=== PATIENT | male | born 1955 | race Caucasian/White ===

== ENCOUNTER 2023-04-05 10:05 | Emergency (ER) | payer OTHER, MEDICARE, BC, SELFPAY ==
[2023-04-05 10:32] VITALS: BP 136/81; PULSE 70; RESP 18; TEMP 36.8; O2SAT 99; BMI 39.1
--- NOTE | 2023-04-05 11:11 | CRLHL7_ITS ---
For Patients: As a result of the Cures Act, medical imaging exams and procedure reports are released immediately into your electronic medical record. You may view this report before your referring provider. If you have questions, please contact your health care provider. INDICATION: Worsening wound COMPARISON: None. TECHNIQUE: Two views right tibia and fibula. FINDINGS: BONES: No fracture. Normal mineralization. No focal bone lesion. JOINT: Grossly normal knee and ankle joint alignment. No knee joint effusion. Joint spaces: Knee osteoarthritis. Soft Tissues: Diffuse subcutaneous soft tissue edema. Irregular soft tissue calcification behind the right distal femur could be atherosclerotic in nature. No foreign body. IMPRESSION: Diffuse soft tissue edema in the right lower leg. No focal osseous lesion or bony destruction seen. Dictated by Lissette Israel MD @ 04/05/2023 12:40:08 PM (Electronically Signed)
[2023-04-05 11:46] LABS: Basophils Absolute Auto 0.02 K/uL (0.00-0.30); Basophils Percent Auto 0.3 % (0.0-3.0); Eosinophils Absolute Auto 0.25 K/uL (0.00-0.50); Eosinophils Percent Auto 4.1 % (0.0-7.0); Hemoglobin* 15.1 gm/dL (13.5-17.5); Lactate Sepsis w/Reflex* 1.7 mmol/L (0.5-1.9); Lymphocytes Percent Auto 18.6 % (20-44); Mean Corpuscular HGB Conc 33 gm/dL (32-36); Mean Corpuscular Hemoglobin 29 pg (26-34); Mean Corpuscular Volume 88 fL (80-100); Monocytes Percent Auto 7.1 % (0.0-11.0); Neutrophils Absolute Auto 4.25 K/uL (1.7-7.0); Neutrophils Percent Auto 69.9 % (42.0-72.0); Platelet Count* 218 K/uL (140-440); RDW Coefficient of Variation % 12.7 % (11.5-15.5); Red Blood Count 5.26 m/uL (4.30-5.90); White Blood Count* 6.08 K/uL (4.50-11.00)
[2023-04-05 11:48] LABS: Slide Review Reflex No
--- NOTE | 2023-04-05 11:55 | ED_ITS ---
HPI - General Adult General Date Seen: 04/05/23 Chief complaint: Skin/Abscess/Foreign Body Stated complaint: R valladares injury Time Seen by Provider: 04/05/23 11:02 Source: patient Mode of arrival: ambulatory Limitations: no limitations History of Present Illness HPI narrative: Patient is a 67-year-old male sent here by [facility] for further evaluation of a wound with possible cellulitis on his right lower leg. The regional injury to this area was on March 18 when he fell off of his truck and hit the leg he thinks on the trailer hitch. He says there was an abrasion and then an adjacent blood blister. He developed some redness surrounding this area over the next several days and on March 22 was seen and was started on Bactrim. He took that until the . He says the redness was better and the leg seem less swollen while he was on the Bactrim but once he stopped he feels like the leg is more swollen and maybe a little bit more red. Has some pain lateral to the area of the wound, he has not had any fevers or systemic complaints. He does not have a primary doctor and does not remember the last time he went to the doctor aside from this, but he is not aware of any other underlying health history. He does not smoke, no significant alcohol use. Related Data Home Medications Medication Instructions Recorded Confirmed No Known Home Medications 04/05/23 04/05/23 Allergies Allergy/AdvReac Type Severity Reaction Status Date / Time No Known Drug Allergies Allergy Verified 04/05/23 10:30 Review of Systems Status of ROS: Reports: 10 or more systems reviewed and unremarkable except as noted in History and below [facility] Social History Smoking Status: Never smoker Do you use any of these nicotine containing products: None Second hand tobacco smoke exposure: No How often do you have a drink containing alcohol: 2-4 times a month How many standard drinks containing alcohol do you have on a typical day: 5 or 6 How often do you have six or more drinks on one occasion: Weekly AUDIT-C Alcohol total score: 7 Non-prescribed substance use: denies use service: No Exam Narrative: Exam Narrative: Vital signs as noted above. In general, an alert, well-appearing patient. Looks comfortable. Head: Normocephalic, atraumatic. Eyes: Pupils are equal reactive. Extraocular movements are full. Conjunctivae are normal. ENT: Mucous membranes are moist. Throat is normal. Neck: Supple without lymphadenopathy. Heart: Regular rate and rhythm. No murmur or rub. Lungs: Clear bilaterally. No increased work of breathing, crackles or wheezes. Abdomen: Soft and nontender. No organomegaly. Extremities: He has [id number] edema in bilateral lower extremities, perhaps slightly worse on the right. On the anterior tibia on the right there is black eschar noted, approximately 4 cm x 2 cm. There is no purulence noted. There is mild erythema on the anterior right lower leg without significant warmth. There is some tenderness lateral to the area of the ESR without fluctuance or induration. Distal pulses are intact. Neurologic: Patient is alert and oriented to person and place. Speech is fluent. Face is symmetric. Moves all extremities equally. Affect: Normal. Skin: Warm and dry. Well perfused. Const: Vital Signs, click to edit/add: Vital Signs - 24 hr 04/05/23 10:32 Temperature 98.2 F Pulse Rate [Femora l] 70 Respiratory Rate 18 Blood Pressure [Ri ght Upper Arm] 136/81 Pulse Oximetry 99 Oxygen Delivery Me thod Room Air Course Course ED Course: Overall patient is well-appearing, nontoxic. He does have some erythema on that right lower leg and a wound which does not appear to be healing well. I think it is reasonable to check some labs particularly given that he does not receive regular healthcare, make sure kidney and liver function is normal, check a blood sugar, white count etcetera. I am also going to get an x-ray of the tib-fib. If labs are normal, it may be reasonable to give a dose of IV antibiotic here and then discharge him on a different oral antibiotic with close follow-up in the Wound Clinic. I discussed the patient's wound with Dr. Torres, who also saw the patient in the emergency department. She debrided the eschar, there was a little bit of hematoma underlying. Wound has been dressed. Wound clinic does not have any availability for couple of weeks so Dr. Torres will see him next week. I am going to send home on doxycycline. If at any time he is acutely worse, significant worsening redness or swelling, new symptoms such as fever, return to the emergency department at any time. He will do dressing changes per Dr. Torres's instructions, compression and elevation as much as possible. Vital Signs Vital signs: Initial Vital Signs Temperature 98.2 F 04/05/23 10:32 Temperature Source Temporal Artery Scan 04/05/23 10:32 Pulse Rate 70 04/05/23 10:32 Pulse Rhythm Regular 04/05/23 10:32 Respiratory Rate 18 04/05/23 10:32 Blood Pressure 136/81 04/05/23 10:32 Blood Pressure Mean 99 04/05/23 10:32 Blood Pressure Position Sitting 04/05/23 10:32 Pulse Oximetry 99 04/05/23 10:32 Oxygen Delivery Method Room Air 04/05/23 10:32 Vital Signs Temperature 98.2 F 04/05/23 10:32 Pulse Rate 70 04/05/23 10:32 Respiratory Rate 18 04/05/23 10:32 Blood Pressure 136/81 04/05/23 10:32 Pulse Oximetry 99 04/05/23 10:32 Oxygen Delivery Method Room Air 04/05/23 10:32 Temperature 98.2 F 04/05/23 10:32 Pulse Rate 70 04/05/23 10:32 Respiratory Rate 18 04/05/23 10:32 Blood Pressure 136/81 04/05/23 10:32 Pulse Oximetry 99 04/05/23 10:32 Oxygen Delivery Method Room Air 04/05/23 10:32 Medical Decision Making Lab Data Labs: Lab Results 04/05/23 Range/Units 11:31 WBC 6.08 (4.50-11.00) K/uL RBC 5.26 (4.30-5.90) m/uL Hgb 15.1 (13.5-17.5) gm/dL Hct 46.0 (37.0-53.0) % MCV 88 (80-100) fL MCH 29 (26-34) pg MCHC 33 (32-36) gm/dL RDW Coeff of [place] 12.7 (11.5-15.5) % Plt Count 218 (140-440) K/uL Neut % (Auto) 69.9 (42.0-72.0) % Lymph % (Auto) 18.6 L (20-44) % [place] % (Auto) 7.1 (0.0-11.0) % Eos % (Auto) 4.1 (0.0-7.0) % Baso % (Auto) 0.3 (0.0-3.0) % Neut # (Auto) 4.25 (1.7-7.0) K/uL Lymph # (Auto) 1.10 (0.90-2.90) K/uL [place] # (Auto) 0.40 (0.00-0.90) K/UL Eos # (Auto) 0.25 (0.00-0.50) K/uL Baso # (Auto) 0.02 (0.00-0.30) K/uL Abs Immat Gran (auto) 0.00 (0.00-0.30) K/uL Imm/Tot Granulo (auto) 0.0 % Sodium 138 (135-149) mmol/L Potassium 4.2 (3.6-5.1) mmol/L Chloride 103 (96-114) mmol/L Carbon Dioxide 26 (20-32) mmol/L Anion Gap 9 (7-15) mEq/L BUN 25 (7-30) mg/dL Creatinine 1.0 (0.5-1.5) mg/dL Estimated Creat Clear 76.35 Estimated GFR 82 ml/min Glucose 111 (60-115) mg/dL Lactate 1.7 (0.5-1.9) mmol/L Calcium 8.6 (8.4-10.6) mg/dL Total Bilirubin 0.5 (0.1-1.5) mg/dL Direct Bilirubin 0.0 (0.0-0.5) mg/dL AST 24 (12-35) U/L ALT 21 (4-50) U/L Alkaline Phosphatase 52 (40-150) U/L C-Reactive Protein 1.1 H (0.5-1.0) mg/dL NT-Pro-B Natriuret Pep 143 pg/mL Total Protein 7.0 (6.0-8.3) g/dL Albumin 4.0 (3.3-5.0) g/dL TSH 1.850 (0.270-4.200) uIU/mL Discharge Plan Discharge Clinical Impression: Infected wound Patient Disposition: Home, Self-Care Condition: Improved Instructions: Wound Infection (DC) Additional Instructions: Antibiotic as prescribed. Dressing changes daily, saline and gauze packing with dry dressing over the top, compression. Elevate as much as possible over the next couple of days. If you have significantly worsening redness, swelling, pain or new symptoms such as fever chills, return to the emergency department. Otherwise, follow up with Dr. Torres in surgery clinic. Clinic will call you to set that appointment up. We will arrange for follow-up in the wound clinic after that. Prescriptions: No Action No Known Home Medications Follow Up/Referrals: Provider,Not a Local [Primary Care Provider] - Stand Alone Forms: [employer] Info Instructions
[2023-04-05 12:02] LABS: Chloride* 103 mmol/L (96-114)
[2023-04-05 12:03] LABS: Potassium* 4.2 mmol/L (3.6-5.1); Sodium* 138 mmol/L (135-149)
[2023-04-05 12:05] LABS: Anion Gap 9 mEq/L (7-15); Carbon Dioxide* 26 mmol/L (20-32); Est. Creatinine Clearance* 76.35; Estimated Glomerular Filt Rate 82 ml/min
[2023-04-05 12:06] LABS: Aspartate Amino Transferase* 24 U/L (12-35); Bilirubin Total* 0.5 mg/dL (0.1-1.5); Blood Urea Nitrogen* 25 mg/dL (7-30); Calcium* 8.6 mg/dL (8.4-10.6); Glucose* 111 mg/dL (60-115)
[2023-04-05 12:07] LABS: Alanine Aminotransferase* 21 U/L (4-50); Alkaline Phosphatase* 52 U/L (40-150)
[2023-04-05 12:11] LABS: C Reactive Protein* 1.1 mg/dL (0.5-1.0)
[2023-04-05 12:17] LABS: NT Pro B Type NatriureticPept* 143 pg/mL
[2023-04-05] MEDS: CEFAZOLIN 1 GM in 0.9 % SODIUM CHLORIDE Mini-bag 100 ML IVPB (12:27)
[2023-04-05] MEDS: lidocaine HCL 2 % JELLY (TOP) STERILE 6 ML TOPICAL (12:40)
[2023-04-05 13:00] VITALS: BP 140/100; PULSE 68; O2SAT 98
--- NOTE | 2023-04-05 13:10 | ED.NURSE ---
pt had a 3 cm by 2 cm eschar wound with redness and swelling in the surrounding tissue. MD removed the eschar, blood clots and irrigated the wound. This reveled a wound depth of 2 cm with pink glandular tissue. MD packed the wound with one wet 4x4 gauze and covered with 2 addition 4x4 on top of the wound. wrapped with Coban. MD gave pt instructions on how to preform daily dressing changes.
[2023-04-05 13:46] VITALS: BP 134/88; PULSE 68; O2SAT 97
--- NOTE | 2023-04-05 13:46 | P.GSCN_ITS ---
History of Present Illness Consult details Date Seen: 04/05/23 Consult date: 04/05/23 Narrative: The patient is a 67-year-old male who sustained an injury to his right lower leg on March 18. At that time he fell off of his truck and he hit his leg he thinks on the trailer hitch. There was an abrasion and a blood blister. He developed redness around it and was seen on March 22 and was started on Bactrim. He felt as though the redness got better but once he stopped the Bactrim the leg became more swollen and red. He went in to be seen in clinic today and he was referred to the ER for possible cellulitis. He does get swelling in his bilateral lower extremities usually. He has been wearing a compression sock though his told him that he should let the area air out so he stopped. No history of diabetes. He does not smoke. [facility] Social History Smoking Status: Never smoker Do you use any of these nicotine containing products: None Second hand tobacco smoke exposure: No How often do you have a drink containing alcohol: 2-4 times a month How many standard drinks containing alcohol do you have on a typical day: 5 or 6 How often do you have six or more drinks on one occasion: Weekly AUDIT-C Alcohol total score: 7 Non-prescribed substance use: denies use service: No Meds Home Medications and Allergies Home Medications Medication Instructions Recorded Confirmed Type No Known Home Medications 04/05/23 04/05/23 History Allergies Allergy/AdvReac Type Severity Reaction Status Date / Time No Known Drug Allergies Allergy Verified 04/05/23 10:30 Exam Narrative: Exam Narrative: General: No acute distress CV: Regular rate. Pedal pulses palpable on the right. Respiratory: Breathing nonlabored on room air Extremities: Right lower extremity is mildly edematous. There is erythema on the anterior and medial valladares. He has a 2 x 4 cm area of eschar. Const: Vital Signs, click to edit/add: Vital Signs - 24 hr 04/05/23 10:32 Temperature 98.2 F Pulse Rate [Femora l] 70 Respiratory Rate 18 Blood Pressure [Ri ght Upper Arm] 136/81 Pulse Oximetry 99 Oxygen Delivery Me thod Room Air Results Labs Labs: Abnormal lab results 04/05/23 Range/Units 11:31 Lymph % (Auto) 18.6 L (20-44) % C-Reactive Protein 1.1 H (0.5-1.0) mg/dL Diabetes panel 04/05/23 Range/Units 11:31 Sodium 138 (135-149) mmol/L Potassium 4.2 (3.6-5.1) mmol/L Chloride 103 (96-114) mmol/L Carbon Dioxide 26 (20-32) mmol/L BUN 25 (7-30) mg/dL Creatinine 1.0 (0.5-1.5) mg/dL Glucose 111 (60-115) mg/dL Calcium 8.6 (8.4-10.6) mg/dL AST 24 (12-35) U/L ALT 21 (4-50) U/L Alkaline Phosphatase 52 (40-150) U/L Total Protein 7.0 (6.0-8.3) g/dL Albumin 4.0 (3.3-5.0) g/dL Thyroid panel 04/05/23 Range/Units 11:31 TSH 1.850 (0.270-4.200) uIU/mL Calcium panel 04/05/23 Range/Units 11:31 Calcium 8.6 (8.4-10.6) mg/dL Albumin 4.0 (3.3-5.0) g/dL Pituitary panel 04/05/23 Range/Units 11:31 Sodium 138 (135-149) mmol/L Potassium 4.2 (3.6-5.1) mmol/L Chloride 103 (96-114) mmol/L Carbon Dioxide 26 (20-32) mmol/L BUN 25 (7-30) mg/dL Creatinine 1.0 (0.5-1.5) mg/dL Glucose 111 (60-115) mg/dL Calcium 8.6 (8.4-10.6) mg/dL TSH 1.850 (0.270-4.200) uIU/mL Adrenal panel 04/05/23 Range/Units 11:31 Sodium 138 (135-149) mmol/L Potassium 4.2 (3.6-5.1) mmol/L Chloride 103 (96-114) mmol/L Carbon Dioxide 26 (20-32) mmol/L BUN 25 (7-30) mg/dL Creatinine 1.0 (0.5-1.5) mg/dL Glucose 111 (60-115) mg/dL Calcium 8.6 (8.4-10.6) mg/dL Total Bilirubin 0.5 (0.1-1.5) mg/dL AST 24 (12-35) U/L ALT 21 (4-50) U/L Alkaline Phosphatase 52 (40-150) U/L Total Protein 7.0 (6.0-8.3) g/dL Albumin 4.0 (3.3-5.0) g/dL All other labs normal. Imaging Additional studies: X-ray tib-fib: IMPRESSION: Diffuse soft tissue edema in the right lower leg. No focal osseous lesion or bony destruction seen. Dictated by Lissette Israel MD @ 04/05/2023 12:40:08 PM Assessment and Plan Assessment and plan (1) Infected wound: Status: Acute Plan The patient is a 67-year-old male with a full-thickness right lower extremity wound from trauma. The eschar was debrided sharply today. Please see procedure note for details. There was a moderate amount of hematoma underlying. This was evacuated. The wound was then irrigated and the patient was instructed on how to perform wet-to-dry dressings. -he is to perform wet to dry dressings daily. He understands that he should also wear compression socks. When he is able he should keep his leg elevated. I explained the rationale behind this - as significant edema will inhibit the w ound from healing and can also increase risk of infection. He likely has some degree of venous insufficiency though his arterial inflow appears to be excellent. -he will follow-up with me next week in clinic at [facility]. We will reach out him to set up that appointment. -wound center referral has been made. They are approximately 2 weeks out. -he is going to be started on antibiotics given the redness though I expect that this will markedly improve with the devitalized tissue being removed.
--- NOTE | 2023-04-05 14:17 | PM.PROC ---
Procedure Note Date Seen: 04/05/23 Will [facility] bill your pro fee for this procedure?: Yes Pre-op diagnosis: Right leg wound Post-op diagnosis: same Procedure: Sharp excisional debridement right lower extremity down to subcutaneous fat, 4 x 2 cm Procedure Description: Topical lidocaine was applied and left to sit for approximately 10 minutes. Once this was done a scissor was used to excise the eschar. This was full thickness through the dermis. Underneath there appeared to be a hematoma. This was evacuated. There was subcutaneous fat present in the wound. The wound measured 2 cm deep by 2 cm wide by 4 cm long. This was irrigated. This was then packed with a wet to dry dressing. The patient was wrapped in an Garcia bandage. Anesthesia: other (Topical) Surgeon: Génesis Torres MD
== END 2023-04-05 14:00 | disposition home or self-care (01) ==
PROVIDERS: Emergency Provider Emergency Medicine
DX: S81.802A Unspecified open wound, left lower leg, initial encounter (principal); L08.9 Local infection of the skin and subcutaneous tissue, unspecified
CPT/HCPCS: 36415; 73590; 80048; 80076; 83605; 83880; 84443; 85025; 86140; 87070; 87186; 96365; 96375; 99284; J0690

== ENCOUNTER 2023-04-14 14:14 | Outpatient (CLI) | payer OTHER, SELFPAY | END 2023-04-14 14:15 | disposition home or self-care (01) | PROVIDERS: Visit Provider Surgery | DX: I87.301 Chronic venous hypertension (idiopathic) without complications of right lower extremity (principal); S81.801S Unspecified open wound, right lower leg, sequela; W17.89XS Other fall from one level to another, sequela; R60.0 Localized edema | CPT/HCPCS: 11042; 11045; 99213 ==

== ENCOUNTER 2023-04-21 12:45 | Outpatient (CLI) | payer OTHER, SELFPAY | END 2023-04-21 12:46 | disposition home or self-care (01) | LOC: WOUND 12:46 | PROVIDERS: Visit Provider Family Medicine | DX: L03.115 Cellulitis of right lower limb (principal); S81.801S Unspecified open wound, right lower leg, sequela; B96.89 Other specified bacterial agents as the cause of diseases classified elsewhere | CPT/HCPCS: 11042; 87070; 87186 ==

== ENCOUNTER 2023-04-29 08:06 | Outpatient (CLI) | payer OTHER, SELFPAY ==
[2023-04-29 10:30] LABS: Eosinophils Absolute Auto 0.12 K/uL (0.00-0.50); Eosinophils Percent Auto 2.3 % (0.0-7.0); Hematocrit 44.3 % (37.0-53.0); Hemoglobin* 14.7 gm/dL (13.5-17.5); Lymphocytes Percent Auto 11.6 % (20-44); Mean Corpuscular HGB Conc 33 gm/dL (32-36); Mean Corpuscular Hemoglobin 28 pg (26-34); Mean Corpuscular Volume 85 fL (80-100); Monocytes Percent Auto 7.8 % (0.0-11.0); Neutrophils Percent Auto 78.3 % (42.0-72.0); Platelet Count* 195 K/uL (140-440); RDW Coefficient of Variation % 12.7 % (11.5-15.5); White Blood Count* 5.16 K/uL (4.50-11.00)
[2023-04-29 10:34] LABS: Slide Review Reflex No
[2023-04-29 10:45] LABS: Hemoglobin A1C* 5.3 % (0-5.6)
[2023-04-29 11:07] LABS: C Reactive Protein* 2.8 mg/dL (0.5-1.0)
[2023-04-29 11:49] LABS: Chloride* 103 mmol/L (96-114)
[2023-04-29 11:50] LABS: Potassium* 3.8 mmol/L (3.6-5.1); Sodium* 139 mmol/L (135-149)
[2023-04-29 11:53] LABS: Anion Gap 11 mEq/L (7-15); Blood Urea Nitrogen* 28 mg/dL (7-30); Carbon Dioxide* 25 mmol/L (20-32); Creatinine* 1.2 mg/dL (0.5-1.5); Estimated Glomerular Filt Rate 66 ml/min; Glucose* 109 mg/dL (60-115)
[2023-05-01 00:09] LABS: Zinc, Serum/Plasma 75.8 ug/dL (60.0-120.0)
== END 2023-04-29 08:07 | disposition home or self-care (01) ==
LOC: WOUND 08:07
PROVIDERS: Visit Provider Nurse Practitioner Family
DX: I87.311 Chronic venous hypertension (idiopathic) with ulcer of right lower extremity (principal); I87.2 Venous insufficiency (chronic) (peripheral); L97.815 Non-pressure chronic ulcer of other part of right lower leg with muscle involvement without evidence of necrosis; L03.115 Cellulitis of right lower limb; R73.09 Other abnormal glucose
CPT/HCPCS: 11043; 36415; 80048; 82728; 83036; 84630; 85025; 86140; 96372; 99212; J0696

== ENCOUNTER 2023-04-29 09:46 | Outpatient (CLI) | payer OTHER, SELFPAY ==
--- NOTE | 2023-04-29 09:30 | CRLHL7_ITS ---
For Patients: As a result of the Cures Act, medical imaging exams and procedure reports are released immediately into your electronic medical record. You may view this report before your referring provider. If you have questions, please contact your health care provider. Indication: Unspecified open wound Technique: Two views right tibia and fibula Comparison: 04/05/2023 Findings: Soft tissue wound is present. No subcutaneous gas. No periostitis or fracture. Mild degenerative changes at the knee. Intact mortise. Impression: No evidence of osteomyelitis. Dictated by Bryon Kingston MD @ 04/29/2023 10:25:53 AM (Electronically Signed)
== END 2023-04-29 09:47 | disposition home or self-care (01) ==
LOC: RAD 09:46
PROVIDERS: Visit Provider Nurse Practitioner Family
DX: S81.801S Unspecified open wound, right lower leg, sequela (principal)
CPT/HCPCS: 73590; 80048; 82728; 83036; 85025; 86140; J0696

== ENCOUNTER 2023-05-03 15:32 | Outpatient (CLI) | payer OTHER, SELFPAY | END 2023-05-03 15:33 | disposition home or self-care (01) | LOC: WOUND 15:32 | PROVIDERS: Visit Provider Nurse Practitioner Family | DX: I87.311 Chronic venous hypertension (idiopathic) with ulcer of right lower extremity (principal); L97.815 Non-pressure chronic ulcer of other part of right lower leg with muscle involvement without evidence of necrosis | CPT/HCPCS: 99212 ==

== ENCOUNTER 2023-05-05 13:36 | Outpatient (CLI) | payer OTHER, SELFPAY | END 2023-05-05 13:37 | disposition home or self-care (01) | LOC: WOUND 13:36 | PROVIDERS: Visit Provider Surgery | DX: I87.311 Chronic venous hypertension (idiopathic) with ulcer of right lower extremity (principal); L97.815 Non-pressure chronic ulcer of other part of right lower leg with muscle involvement without evidence of necrosis; I87.2 Venous insufficiency (chronic) (peripheral) | CPT/HCPCS: 11042 ==

== ENCOUNTER 2023-05-07 14:45 | Outpatient (CLI) | payer OTHER, SELFPAY | END 2023-05-07 14:46 | disposition home or self-care (01) | LOC: WOUND 14:45 | PROVIDERS: Visit Provider Nurse Practitioner Family | DX: I87.311 Chronic venous hypertension (idiopathic) with ulcer of right lower extremity (principal); L97.815 Non-pressure chronic ulcer of other part of right lower leg with muscle involvement without evidence of necrosis | CPT/HCPCS: 29581 ==

== ENCOUNTER 2023-05-11 07:55 | Outpatient (CLI) | payer OTHER, SELFPAY | END 2023-05-11 07:56 | disposition home or self-care (01) | LOC: WOUND 07:55 | PROVIDERS: Visit Provider Nurse Practitioner Family | DX: I87.311 Chronic venous hypertension (idiopathic) with ulcer of right lower extremity (principal); I87.2 Venous insufficiency (chronic) (peripheral); L97.815 Non-pressure chronic ulcer of other part of right lower leg with muscle involvement without evidence of necrosis | CPT/HCPCS: 11042 ==

== ENCOUNTER 2023-05-19 13:45 | Outpatient (CLI) | payer OTHER, SELFPAY | END 2023-05-19 13:46 | disposition home or self-care (01) | LOC: WOUND 13:45 | PROVIDERS: Visit Provider Surgery | DX: I87.311 Chronic venous hypertension (idiopathic) with ulcer of right lower extremity (principal); I87.2 Venous insufficiency (chronic) (peripheral); L97.815 Non-pressure chronic ulcer of other part of right lower leg with muscle involvement without evidence of necrosis; L03.115 Cellulitis of right lower limb | CPT/HCPCS: 97597 ==

== ENCOUNTER 2023-05-21 15:50 | Outpatient (CLI) | payer OTHER, SELFPAY | END 2023-05-21 15:51 | disposition home or self-care (01) | LOC: WOUND 15:50 | PROVIDERS: Visit Provider Nurse Practitioner Family | DX: I87.311 Chronic venous hypertension (idiopathic) with ulcer of right lower extremity (principal); L97.815 Non-pressure chronic ulcer of other part of right lower leg with muscle involvement without evidence of necrosis | CPT/HCPCS: 29581 ==

== ENCOUNTER 2023-05-24 15:42 | Outpatient (CLI) | payer OTHER, SELFPAY | END 2023-05-24 15:43 | disposition home or self-care (01) | LOC: WOUND 15:42 | PROVIDERS: Visit Provider Nurse Practitioner Family | DX: I87.311 Chronic venous hypertension (idiopathic) with ulcer of right lower extremity (principal); L97.815 Non-pressure chronic ulcer of other part of right lower leg with muscle involvement without evidence of necrosis | CPT/HCPCS: 29581 ==

== ENCOUNTER 2023-05-26 13:48 | Outpatient (CLI) | payer OTHER, SELFPAY | END 2023-05-26 13:49 | disposition home or self-care (01) | LOC: WOUND 13:48 | PROVIDERS: Visit Provider Surgery | DX: I87.311 Chronic venous hypertension (idiopathic) with ulcer of right lower extremity (principal); I87.2 Venous insufficiency (chronic) (peripheral); L97.815 Non-pressure chronic ulcer of other part of right lower leg with muscle involvement without evidence of necrosis | CPT/HCPCS: 99214 ==

== ENCOUNTER 2023-05-28 14:40 | Outpatient (CLI) | payer OTHER, SELFPAY | END 2023-05-28 14:41 | disposition home or self-care (01) | LOC: WOUND 14:40 | PROVIDERS: Visit Provider Nurse Practitioner Family | DX: I87.311 Chronic venous hypertension (idiopathic) with ulcer of right lower extremity (principal); L97.815 Non-pressure chronic ulcer of other part of right lower leg with muscle involvement without evidence of necrosis | CPT/HCPCS: 29581 ==

== ENCOUNTER 2023-05-31 14:02 | Outpatient (CLI) | payer OTHER, SELFPAY | END 2023-05-31 14:03 | disposition home or self-care (01) | PROVIDERS: Visit Provider Nurse Practitioner Family | DX: I87.311 Chronic venous hypertension (idiopathic) with ulcer of right lower extremity (principal); L97.815 Non-pressure chronic ulcer of other part of right lower leg with muscle involvement without evidence of necrosis; I87.2 Venous insufficiency (chronic) (peripheral) | CPT/HCPCS: 29581 ==

== ENCOUNTER 2023-06-02 13:51 | Outpatient (CLI) | payer OTHER, SELFPAY | END 2023-06-02 13:52 | disposition home or self-care (01) | PROVIDERS: Visit Provider Surgery | DX: I87.311 Chronic venous hypertension (idiopathic) with ulcer of right lower extremity (principal); L97.812 Non-pressure chronic ulcer of other part of right lower leg with fat layer exposed | CPT/HCPCS: 15271; Q4151 ==

== ENCOUNTER 2023-06-04 15:24 | Outpatient (CLI) | payer OTHER, SELFPAY | END 2023-06-04 15:25 | disposition home or self-care (01) | LOC: WOUND 15:24 | PROVIDERS: Visit Provider Surgery | DX: I87.311 Chronic venous hypertension (idiopathic) with ulcer of right lower extremity (principal); L97.815 Non-pressure chronic ulcer of other part of right lower leg with muscle involvement without evidence of necrosis | CPT/HCPCS: 29581 ==

== ENCOUNTER 2023-06-07 15:56 | Outpatient (CLI) | payer OTHER, SELFPAY | END 2023-06-07 15:57 | disposition home or self-care (01) | LOC: WOUND 15:56 | PROVIDERS: Visit Provider Surgery | DX: I87.311 Chronic venous hypertension (idiopathic) with ulcer of right lower extremity (principal); L97.815 Non-pressure chronic ulcer of other part of right lower leg with muscle involvement without evidence of necrosis | CPT/HCPCS: 29581 ==

== ENCOUNTER 2023-06-09 13:54 | Outpatient (CLI) | payer OTHER, SELFPAY | END 2023-06-09 13:55 | disposition home or self-care (01) | LOC: WOUND 13:54 | PROVIDERS: Visit Provider Surgery | DX: I87.311 Chronic venous hypertension (idiopathic) with ulcer of right lower extremity (principal); L97.815 Non-pressure chronic ulcer of other part of right lower leg with muscle involvement without evidence of necrosis; I87.2 Venous insufficiency (chronic) (peripheral) | CPT/HCPCS: 15271; Q4151 ==

== ENCOUNTER 2023-06-11 15:46 | Outpatient (CLI) | payer OTHER, SELFPAY | END 2023-06-11 15:47 | disposition home or self-care (01) | LOC: WOUND 15:46 | PROVIDERS: Visit Provider Nurse Practitioner Family | DX: I87.311 Chronic venous hypertension (idiopathic) with ulcer of right lower extremity (principal); L97.815 Non-pressure chronic ulcer of other part of right lower leg with muscle involvement without evidence of necrosis | CPT/HCPCS: 29581 ==

== ENCOUNTER 2023-06-15 11:07 | Outpatient (CLI) | payer OTHER, SELFPAY | END 2023-06-15 11:08 | disposition home or self-care (01) | LOC: WOUND 11:07 | PROVIDERS: Visit Provider Surgery | DX: I87.311 Chronic venous hypertension (idiopathic) with ulcer of right lower extremity (principal); L97.815 Non-pressure chronic ulcer of other part of right lower leg with muscle involvement without evidence of necrosis | CPT/HCPCS: 29581 ==

== ENCOUNTER 2023-06-18 15:00 | Outpatient (CLI) | payer OTHER, SELFPAY | END 2023-06-18 15:01 | disposition home or self-care (01) | LOC: WOUND 15:01 | PROVIDERS: Visit Provider Surgery | DX: I87.311 Chronic venous hypertension (idiopathic) with ulcer of right lower extremity (principal); L97.815 Non-pressure chronic ulcer of other part of right lower leg with muscle involvement without evidence of necrosis | CPT/HCPCS: 29581 ==

== ENCOUNTER 2023-06-23 13:44 | Outpatient (CLI) | payer OTHER, SELFPAY | END 2023-06-23 13:45 | disposition home or self-care (01) | LOC: WOUND 13:44 | PROVIDERS: Visit Provider Surgery | DX: I87.311 Chronic venous hypertension (idiopathic) with ulcer of right lower extremity (principal); L97.812 Non-pressure chronic ulcer of other part of right lower leg with fat layer exposed | CPT/HCPCS: 97597 ==

== ENCOUNTER 2023-06-25 15:16 | Outpatient (CLI) | payer OTHER, SELFPAY | END 2023-06-25 15:17 | disposition home or self-care (01) | PROVIDERS: Visit Provider Surgery | DX: I87.311 Chronic venous hypertension (idiopathic) with ulcer of right lower extremity (principal); L97.815 Non-pressure chronic ulcer of other part of right lower leg with muscle involvement without evidence of necrosis | CPT/HCPCS: 29581 ==

== ENCOUNTER 2023-06-28 15:43 | Outpatient (CLI) | payer OTHER, SELFPAY | END 2023-06-28 15:44 | disposition home or self-care (01) | LOC: WOUND 15:43 | PROVIDERS: Visit Provider Surgery | DX: I87.311 Chronic venous hypertension (idiopathic) with ulcer of right lower extremity (principal); L97.815 Non-pressure chronic ulcer of other part of right lower leg with muscle involvement without evidence of necrosis | CPT/HCPCS: 29581 ==

== ENCOUNTER 2023-06-30 13:39 | Outpatient (CLI) | payer OTHER, SELFPAY | END 2023-06-30 13:40 | disposition home or self-care (01) | LOC: WOUND 13:39 | PROVIDERS: Visit Provider Surgery | DX: I87.311 Chronic venous hypertension (idiopathic) with ulcer of right lower extremity (principal); L97.818 Non-pressure chronic ulcer of other part of right lower leg with other specified severity | CPT/HCPCS: G0463 ==